=== PATIENT | female | born 1990 | race Caucasian/White ===

== ENCOUNTER 2021-05-16 15:47 | Emergency (ER) | payer BC ==
[~2021-05-16] VITALS: Ht 170.2 cm; Wt 109.0 kg
--- NOTE | 2021-05-16 17:43 | PHYS DOC ---
Past History Past Surgical History: (ZIYAD RAMIREZ APRN) General Adult EDM: Chief Complaint: WRIST PAIN HPI: HPI: Patient is a 31-year-old female who presents to the emergency department for right wrist pain. Patient reports that she was moving her couch and did not have a good graduate rn on it slipped and fell onto her right wrist today around 1400. She reports an abrasion and swelling to her right wrist. Patient rates pain 5 out of 10. Is worse with movement. No treatment prior to arrival. She denies any decreased range of motion or decrease sensation in her extremity. (ZIYAD RAMIREZ APRN) Review of Systems: Review of Systems: Constitutional: negative unless reported in HPI Eyes: negative unless reported in HPI HENT: negative unless reported in HPI Respiratory: negative unless reported in HPI Cardiovascular: negative unless reported in HPI GI: negative unless reported in HPI : negative unless reported in HPI Musculoskeletal: negative unless reported in HPI Integument: negative unless reported in HPI Neurologic: negative unless reported in HPI Endocrine: negative unless reported in HPI Lymphatic: negative unless reported in HPI Psychiatric: negative unless reported in HPI (ZIYAD RAMIREZ APRN) Physical Exam: PE: Constitutional: Well developed, well nourished, no acute distress, non-toxic appearance. [] HENT: Normocephalic, atraumatic, bilateral external ears normal, oropharynx moist, no oral exudates, nose normal. [] Eyes: PERRL, EOMI, conjunctiva normal, no discharge. [] Neck: Normal range of motion, no stridor Cardiovascular: Normal peripheral perfusion Lungs & Thorax: Normal work of breathing, no tachypnea Abdomen: Soft and flat Skin: Warm, dry, no erythema, no rash. [] Back: Normal range of motion Extremities: No tenderness, no cyanosis, no clubbing, ROM intact, no edema. [] Right wrist: Abrasion and swelling noted to anterior aspect of right wrist, range of motion intact, neuro intact, no crepitus, no obvious deformity Neurologic: Alert and oriented X 3, normal motor function, normal sensory function, no focal deficits noted. [] Psychologic: Affect normal, judgement normal, mood normal. [] (ZIYAD RAMIREZ APRN) Current Patient Data: Vital Signs: Vital Signs Date Time Temp Pulse Resp B/P (MAP) Pulse Ox O2 Delivery O2 Flow Rate FiO2 05/16/21 17:36 98.6 76 20 146/76 (99) 99 Room Air (ZIYAD RAMIREZ APRN) EKG: EKG: [] (ZIYAD RAMIREZ APRN) Radiology/Procedures: Radiology/Procedures: []ROCEDURE: WRIST 3V RIGHT EXAM: XR RT WRIST 3VIEWS 05/16/2021 5:41 PM CLINICAL INDICATION: Wrist injury, dropped couch on wrist COMPARISON: None TECHNIQUE: 3 views of the right wrist FINDINGS: There is irregularity of the trapezoid on oblique view, indeterminate. Otherwise no fracture or malalignment. Joint spaces are maintained. Soft tissues normal.. Alignment is normal. Joint spaces are maintained. Soft tissues normal. IMPRESSION: Irregular of the trapezoid on oblique view, fracture is possible. Correlate with site of pain. Otherwise negative radiograph of the wrist. Electronically signed by: Marjorie Carroll MD (05/16/2021 6:22 PM) [id number] DICTATED AND SIGNED BY: MARJORIE CARROLL MD DATE: 05/16/211816 CC: ZIYAD RAMIREZ APRN; NALLELY ALVA ~MTH0 0 (ZIYAD RAMIREZ APRN) Heart Score: C/O Chest Pain: N/A Risk Factors: Risk Factors: DM, Current or recent (<one month) smoker, HTN, HLP, family history of CAD, obesity. Risk Scores: Score 0 - 3: 2.5% MACE over next 6 weeks - Discharge Home Score 4 - 6: 20.3% MACE over next 6 weeks - Admit for Clinical Observation Score 7 - 10: 72.7% MACE over next 6 weeks - Early Invasive Strategies (ZIYAD RAMIREZ APRN) Course & Med Decision Making: Course & Med Decision Making Pertinent Labs and Imaging studies reviewed. (See chart for details) [] Patient presents to the emergency department today for right wrist pain after a couch fell on it. X-ray was performed that showed possible trapezoid fracture visible on the oblique view. Patient's hand was placed in a thumb spica splint. Patient is neurovascularly intact pre and post splint placement. Patient tolerated procedure. Patient educated on splint care and fracture care. Patient advised to take anti-inflammatory medications and apply ice. I discussed with patient all findings and diagnostic testing as well as the need to follow-up with PCP for further evaluation and treatment or return to the ER if any new or worsening symptoms. Strict return precautions were also discussed at length. Patient voiced understanding and agreement with the plan. Patient is hemodynamically stable at the time of disposition. (ZIYAD RAMIREZ APRN) Dragon Disclaimer: Dragon Disclaimer: This electronic medical record was generated, in whole or in part, using a voice recognition dictation system. (ZIYAD RAMIREZ APRN) Departure Departure: Impression: Primary Impression: Trapezoid bone (lesser multangular) fracture, closed Qualified Codes: S62.184A - Nondisplaced fracture of trapezoid [smaller multangular], right wrist, initial encounter for closed fracture Disposition: HOME / SELF CARE / HOMELESS Condition: GOOD Referrals: NALLELY ALVA (PCP) WALT FUENTES Jr. DO Patient Instructions: Hand Fracture Additional Instructions: You were seen in the ER today for a fracture or broken bone. You had a splint placed to help with pain and healing. You will need to follow-up with the orthopedic doctors in the orthopedic clinic as soon as possible. Please see attached information regarding follow-up physician. You should perform range of motion exercises to prevent stiffness of your joints. Splints help with the pain and can promote healing but immobility can cause chronic pain over time. Keep the splint clean and dry avoid getting it wet. If the splint gets wet you will need to have it replaced. You should use ice and elevation to help with the swelling and pain. For the first 24 hours apply ice 20 minutes on 20 minutes off 4 times per day. Ensure that ice is in a plastic bag as to not get the splint wet. You may take NSAID medications (Tylenol, ibuprofen, naproxen) to help with the pain. Please return to the emergency department if you develop any of the following symptoms: Increasing pain that does not improve with treatments. New numbness or tingling Warmth, redness, skin discoloration, skin breakdown, drainage from under splint or near splinted area. Increasing inability to move your extremity or digits. Foul odor coming from splint Fevers or chills Nausea or vomiting Persistent lightheadedness We would be happy to see you for any other concerning symptoms regarding your splinted extremity. Attending Signature Attending Signature I have reviewed the PA/SWITCH MAKER's note and plan of care. I was available for consultation as needed during the patient's visit in the emergency department. I agree with the clinical impression, plan, and disposition. (RICKI HO DO) ZIYAD RAMIREZ APRN May 16, 2021 17:42 RICKI HO DO May 17, 2021 01:27
--- NOTE | 2021-05-16 18:25 | RAD ---
EXAM: XR RT WRIST 3VIEWS 05/16/2021 5:41 PM CLINICAL INDICATION: Wrist injury, dropped couch on wrist COMPARISON: None TECHNIQUE: 3 views of the right wrist FINDINGS: There is irregularity of the trapezoid on oblique view, indeterminate. Otherwise no fractu re or malalignment. Joint spaces are maintained. Soft tissues normal.. Alignment is normal. Joint spa saundra are maintained. Soft tissues normal. IMPRESSION: Irregular of the trapezoid on oblique view, fracture is possible. Correlate with site of pain. Otherwise negative radiograph of the wrist. Electronically signed by: Marjorie Carroll MD (05/16/2021 6:22 PM) [id number]
[2021-05-16 19:00] VITALS: BP 132/76
== END 2021-05-16 19:04 | disposition home or self-care (01) ==
LOC: ER 15:47
DX: S62.184A Nondisplaced fracture of trapezoid [smaller multangular], right wrist, initial encounter for closed fracture (principal); W01.0XXA Fall on same level from slipping, tripping and stumbling without subsequent striking against object, initial encounter; Y93.89 Activity, other specified; Y92.89 Other specified places as the place of occurrence of the external cause; Y99.8 Other external cause status
CPT/HCPCS: 29125; 73110; 99283

== ENCOUNTER → 2021-05-27 | Outpatient (CLI) | payer BC ==
[2021-05-16 19:00] VITALS: BP 132/76
--- NOTE | 2021-05-27 15:11 | RAD ---
EXAMINATION: CT RIGHT WRIST WITHOUT IV CONTRAST CLINICAL HISTORY: WRIST FX - HAMATE AND TRAPEZOID FX TECHNIQUE: Noncontrast serial axial images obtained through the right wrist with sagittal and coronal reconstructions. CT Dose Reduction Employed: One or more of the following individualized dose reduction techniques wer e utilized for this examination: 1. Automated exposure control 2. Adjustment of the mA and/or kV ac cording to patient size 3. Use of iterative reconstruction technique. COMPARISON: Right wrist radiographs 05/16/2021 FINDINGS: Questionable healing sagittally oriented nondisplaced fracture through the lunate bone (series 5 imag e 46 and series 7 image 42). There is otherwise no evidence of acute fracture. Joint spaces and align ment maintained. Muscles and tendons unremarkable on limited evaluation. IMPRESSION: Questionable healing subtle nondisplaced lunate fracture, otherwise no evidence of acute osseous abno rmality. Electronically signed by: Austyn Harris DO (05/27/2021 3:08 PM) STEVEN
== END ==
LOC: CT 14:15
PROVIDERS: ATTEND Physician Assistant
DX: S62.184A Nondisplaced fracture of trapezoid [smaller multangular], right wrist, initial encounter for closed fracture (principal); S62.144A Nondisplaced fracture of body of hamate [unciform] bone, right wrist, initial encounter for closed fracture; X58.XXXA Exposure to other specified factors, initial encounter; Y93.89 Activity, other specified; Y92.89 Other specified places as the place of occurrence of the external cause; Y99.8 Other external cause status
CPT/HCPCS: 73200

== ENCOUNTER → 2021-07-10 | Outpatient (CLI) | payer BC ==
--- NOTE | 2021-07-10 10:43 | RAD ---
Study: XR RT WRIST 3VIEWS Indication: Follow-up wrist fracture. Comparison: 05/16/2021 radiographs; CT from 05/27/2021 Findings: No periosteal bone formation is seen to indicate a healing fracture. No radiographic manifestations o f avascular necrosis. Carpal alignment is anatomic. Borderline ulnar minus variance measured at 2 mm. The visualized hand is within normal limits. Similar appearance of the soft tissues. Impression: No radiographic evidence for a subacute/healing fracture. Borderline ulnar minus variance. If there i s persistent unexplained wrist pain MRI could be considered. Electronically signed by: PRINCE HAMILTON MD (07/10/2021 10:41 AM) [id number]
== END ==
LOC: RAD 09:33
PROVIDERS: ATTEND Physician Assistant
DX: S62.124 Nondisplaced fracture of lunate [semilunar], right wrist (principal); X58.XXXD Exposure to other specified factors, subsequent encounter
CPT/HCPCS: 73110